=== PATIENT | female | born 1980 | race Caucasian/White ===

== ENCOUNTER 2023-02-14 09:11 | Outpatient (CLI) | payer BC | END 2023-02-14 09:12 | disposition home or self-care (01) | LOC: CSHMAMMO 09:11 | PROVIDERS: ATTEND Obstetrics & Gynecology | DX: Z12.31 Encounter for screening mammogram for malignant neoplasm of breast (principal) | CPT/HCPCS: 77063; 77067 ==

== ENCOUNTER 2023-02-28 13:12 | Outpatient (CLI) | payer BC | END 2023-02-28 13:13 | disposition home or self-care (01) | LOC: CSHMAMMO 13:12 | PROVIDERS: ATTEND Obstetrics & Gynecology | DX: Z13.820 Encounter for screening for osteoporosis (principal); M85.89 Other specified disorders of bone density and structure, multiple sites | CPT/HCPCS: 77080 ==

== ENCOUNTER 2024-01-27 15:14 | Outpatient (CLI) | payer BC ==
[2024-01-27 16:10] LABS: BHCG - Serum Negative (NEGATIVE); Pregs Control Background? CLEAR/WHITE (CLR/WHITE); Pregs Control Bar Appear? YES (CONTROL BAR)
== END 2024-01-27 15:15 | disposition home or self-care (01) ==
LOC: CSHLAB 15:14
PROVIDERS: ATTEND Surgery
DX: Z01.812 Encounter for preprocedural laboratory examination (principal); K82.2 Perforation of gallbladder
CPT/HCPCS: 84703

== ENCOUNTER 2024-01-28 11:04 | Day surgery (SDC) | payer BC ==
[2024-01-27 15:50] VITALS: BMI 29.8
[2024-01-28] MEDS ORDERED: PROPOFOL 20 ML ONE (13:04)
[2024-01-28] MEDS ORDERED: Lidocaine 2% PF 5 ML VIAL ONE (13:04)
[2024-01-28] MEDS ORDERED: Lidocaine 4% PF 5 ML AMP ONE (13:04)
[2024-01-28] MEDS ORDERED: fentaNYL 50 mcg/mL 1 mL Vial ONE ×6 (13:06→14:56)
[2024-01-28] MEDS ORDERED: Bupivacaine/Epinephrine 0.25% 30 ML VIAL ONE (13:08)
[2024-01-28] MEDS ORDERED: CEFAZOLIN 2 GM VIAL ONE (13:15)
[2024-01-28] MEDS ORDERED: Bupivacaine HCl 0.5%/Epinephrine 1:200,000/PF 30 ml Vial ONE (13:51)
[2024-01-28] MEDS ORDERED: SUGAMMADEX SODIUM 200 MG/2 ML VIAL ONE (13:55)
[2024-01-28] MEDS ORDERED: Ondansetron PF 4 MG/2 ML Vial ONE (13:55)
[2024-01-28] MEDS ORDERED: Dexamethasone 4 mg/ml Vial ONE (13:55)
[2024-01-28] MEDS ORDERED: diphenhydrAMINE 50 MG/ML VIAL ONE (14:34)
[2024-01-28] MEDS ORDERED: HYDROcodone/Acetaminophen 5/325 mg Tablet ONE (15:25)
== END 2024-01-28 16:10 | disposition home or self-care (01) ==
LOC: CSHSDC 11:04
PROVIDERS: ATTEND Surgery
PROC: 0FT44ZZ Resection of Gallbladder, Percutaneous Endoscopic Approach (ICD-10-PCS; principal; 2024-01-28)
DX: K80.12 Calculus of gallbladder with acute and chronic cholecystitis without obstruction (principal); Z98.84 Bariatric surgery status; Z88.8 Allergy status to other drugs, medicaments and biological substances; Z88.1 Allergy status to other antibiotic agents
CPT/HCPCS: 88304; C1889; J1100; J1200; J2405; J2704; J3010; S2900